=== PATIENT | male | born 1995 | race Caucasian/White ===

== ENCOUNTER 2016-10-30 23:06 | Emergency (ER) | payer BC ==
[2016-10-30 23:13] VITALS: BP 137/73; PULSE 87; TEMP 98.1; BMI 44.9
--- NOTE | 2016-10-31 00:36 | PDOC ---
History of Present Illness - General History Source: Patient Exam Limitations: No Limitations - History of Present Illness Initial Comments: 10/31/16 01:07 The patient is a 21 year old male with no significant past medical history who presents to the ED for left 4th digit pain and swelling prior to arrival. Patient reports he was playing basketball when the basketball jammed his left 4th digit and he sustained pain and swelling to the area. Patient is right hand dominant. The patient denies fever, chills, cough, SOB, chest pain, and palpitations. The patient denies abdominal pain, nausea, vomiting, and diarrhea. Allergies: NKDA Social History: No alcohol, tobacco, or drug use reported. Past Surgical History: None reported PCP: None reported <Myesha Wright - Last Filed: 10/31/16 01:07> <Emily Garrett - Last Filed: 10/31/16 20:28> - General Chief Complaint: Injury Stated Complaint: SWOLLEN LT FINGER Time Seen by Provider: 10/30/16 23:50 Past History <Myesha Wright - Last Filed: 10/31/16 01:07> - Psycho/Social/Smoking Cessation Hx Anxiety: No Suicidal Ideation: No Smoking History: Never smoked Have you smoked in the past 12 months: No Information on smoking cessation initiated: No Hx Alcohol Use: No Drug/Substance Use Hx: No Substance Use Type: None <Emily Garrett - Last Filed: 10/31/16 20:28> - Past Medical History Allergies/Adverse Reactions: Allergies Allergy/AdvReac Type Severity Reaction Status Date / Time No Known Allergies Allergy Verified 10/30/16 23:13 Home Medications: Ambulatory Orders NK [No Known Home Medication] 10/30/16 Review of Systems - Review of Systems Able to Perform ROS?: Yes Comments:: 10/31/16 01:07 CONSTITUTIONAL: Absent: fever, no chills, no fatigue EYES: Absent: visual changes ENT: Absent: ear pain, no sore throat CARDIOVASCULAR: Absent: chest pain, no palpitations RESPIRATORY: Absent: cough, no SOB GI: Absent: abdominal pain, no nausea, no vomiting, no constipation, no diarrhea GENITOURINARY: Absent: dysuria, no frequency, no hematuria MUSCULOSKELETAL: +left 4th digit pain and swelling Absent: back pain SKIN: Absent: rash NEURO: Absent: headache <KyleMyesha - Last Filed: 10/31/16 01:07> *Physical Exam - Vital Signs Last Vital Signs Temp Pulse Resp BP Pulse Ox 98.1 F 87 18 137/73 97 10/30/16 23:10 10/30/16 23:10 10/30/16 23:10 10/30/16 23:10 10/30/16 23:10 - Physical Exam Comments: 10/31/16 01:07 GENERAL: Well-appearing, well-nourished. No apparent distress. HEENT: Normocephalic, atraumatic. PERRL, EOM intact. CARDIOVASCULAR: Normal S1, S2. Regular rate and rhythm. PULMONARY: Clear to auscultation bilaterally. ABDOMEN: Soft, non-distended, non-tender. EXTREMITIES: No cyanosis. No clubbing. No calf tenderness. Limited ROM of left 4th digit secondary to swelling. Full extension and full flexion of the left 4th digit. Tenderness and slight swelling of the left 4th digit with good capillary refill. Surrounding hematoma at the volar aspect of the left 4th PIP joint. SKIN: Warm and dry. Normal capillary refill. No rashes. No jaundice. NEUROLOGICAL: No focal neurological deficits. <KyleMyesha - Last Filed: 10/31/16 01:07> - Vital Signs Last Vital Signs Temp Pulse Resp BP Pulse Ox 98.1 F 87 18 137/73 97 10/30/16 23:10 10/30/16 23:10 10/30/16 23:10 10/30/16 23:10 10/30/16 23:10 <Emily Garrett - Last Filed: 10/31/16 20:28> Medical Decision Making - Medical Decision Making 10/31/16 20:26 Pt sprained his non-dominant left 4th finger while playing BBall; no fractures. NSAIDS rest, ice and finger splint. Folow with ortho as needed. 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 <Emily Garrett - Last Filed: 10/31/16 20:28> *DC/Admit/Observation/Transfer - Attestations Scribe Attestion: 10/31/16 01:07 Documentation prepared by Myesha Wright, acting as medical office administrator for Emily Garrett MD/DO. <Myesha Wright - Last Filed: 10/31/16 01:07> - Discharge Dispostion Admit: No <Emily Garrett - Last Filed: 10/31/16 20:28> Diagnosis at time of Disposition: Finger sprain - Discharge Dispostion Disposition: HOME Condition at time of disposition: Stable - Referrals Referrals: Gonzales Chadwick MD [Staff Physician] - Anshul Ahuja MD [Staff Physician] - - Patient Instructions Printed Discharge Instructions: Finger Sprain - Post Discharge Activity Work/School Note: Back to Work
[2016-10-31] MEDS ORDERED: IBUPROFEN 600 MG TABLET (FP) PO ONE ×2 (00:44→01:29)
== END 2016-10-31 01:26 | disposition home or self-care (01) ==
LOC: SUPCPDRO 23:06 → JER 23:06
PROC: 2W3KX1Z Immobilization of Left Finger using Splint (ICD-10-PCS; principal; 2016-10-30)
DX: S63.635A Sprain of interphalangeal joint of left ring finger, initial encounter (principal); W21.05XA Struck by basketball, initial encounter; Y93.67 Activity, basketball; Y92.310 Basketball court as the place of occurrence of the external cause; Y99.8 Other external cause status
CPT/HCPCS: 73140-TC-LT; 99282-25